=== PATIENT | female | born 1975 | race Caucasian/White ===

== ENCOUNTER → 2016-06-08 | Outpatient (CLI) | payer BC ==
--- NOTE | 2016-06-09 17:04 | WOMENS IMAGING REPORT ---
EXAM DESCRIPTION: 3D SCREENING MAMMO BILAT COMPLETED DATE/TIME: 06/08/2016 9:10 am REASON FOR STUDY: Z12.31 ROUTINE SCREENING MAMMO Z12.31 ENCNTR SCREEN MAMMOGRAM FOR MALIGNANT NEOPL ASM OF PHILIPP COMPARISON: 05/25/2015 TECHNIQUE: Standard craniocaudal and mediolateral oblique views of each breast recorded using digita l acquisition and breast tomosynthesis. LIMITATIONS: None. FINDINGS: No masses, calcifications or architectural distortion. No areas of suspicion. Read with the assistance of CAD. .[facility] - R2 Cenova Version 1.3 .[facility] - R2 Cenova Version 1.3 .[facility] - R2 Cenova Version 2.4 .[facility] [place] Cenova Version 2.4 .[facility] - R2 Economic Development Coordinator Version 9.2 BREAST DENSITY: c. The breasts are heterogeneously dense, which may obscure small masses. BIRAD: 1 NEGATIVE RECOMMENDATION: ROUTINE SCREENING COMMENT: PATIENT NOTIFIED BY LETTER. The [employer] recommends an annual screening mammogram for women aged 40 years or over. Each patient will receive a reminder prior to the anniversary date of her mammogram. The [employer] (ACR) has developed recommendations for screening MRI of the breast s in certain patient populations, to be used in conjunction with mammography. Breast MRI surveillanc e may be appropriate for women with more than 20% lifetime risk of developing breast cancer as deter mined by genetic testing, significant family history of the disease, or history of mantle radiation f or Hodgkins Disease. ACR Practice Guidelines 2008. DBT Technology DBT is a type of tomographic mammography. With conventional mammography, overlapping breast tissue ma y make lesions difficult to detect, even with good compression. DBT uses an x-ray tube that rotates a round the breast, taking images at different angles. These images are then combined to create thin sl ices of the breast that the radiologist can view as a 3D reconstruction. The [email or web address] unit can perform full-field digital mammograms (2D imaging); or DBT (3D imaging); or both, in a combination mode that quickly performs both the mammogram and the tomosynthesis scan while the breast is still compressed. PQRS 6045F: Fluoroscopic imaging is not utilized for breast tomosynthesis. TECHNICAL DOCUMENTATION: FINDING NUMBER: (1) ASSESSMENT: (1) JOB ID: [id number]- All Rights Reserved
== END ==
LOC: WI 08:42
PROVIDERS: ATTEND Obstetrics & Gynecology
DX: Z12.31 Encounter for screening mammogram for malignant neoplasm of breast (principal)
CPT/HCPCS: 77063; G0202; 77067

== ENCOUNTER → 2016-11-10 | Outpatient (CLI) | payer BC ==
[2016-11-10 16:27] LABS: ANION GAP 13 (5-19); BLOOD UREA NITROGEN 11 mg/dL (7-20); CALCIUM 9.5 mg/dL (8.4-10.2); CARBON DIOXIDE 24 mmol/L (22-30); CHLORIDE 99 mmol/L (98-107); CREATININE RESULT 1.16 mg/dL (0.52-1.25); GLUCOSE 81 mg/dL (75-110); SODIUM 135.6 mmol/L (137-145)
[2016-11-10 17:59] LABS: POTASSIUM 2.8 mmol/L (3.6-5.0)
== END ==
LOC: OD 15:36
PROVIDERS: ATTEND Internal Medicine Nephrology
DX: N20.9 Urinary calculus, unspecified (principal); E87.6 Hypokalemia
CPT/HCPCS: 36415; 80048

== ENCOUNTER → 2016-11-14 | Outpatient (CLI) | payer BC ==
[2016-11-14 11:31] LABS: ANION GAP 10 (5-19); BLOOD UREA NITROGEN 5 mg/dL (7-20); CALCIUM 9.3 mg/dL (8.4-10.2); CARBON DIOXIDE 22 mmol/L (22-30); CHLORIDE 103 mmol/L (98-107); CREATININE RESULT 0.98 mg/dL (0.52-1.25); GLUCOSE 88 mg/dL (75-110); POTASSIUM 3.3 mmol/L (3.6-5.0); SODIUM 134.8 mmol/L (137-145)
== END ==
LOC: OD 10:47
PROVIDERS: ATTEND Internal Medicine Nephrology
DX: E87.5 Hyperkalemia (principal)
CPT/HCPCS: 36415; 80048

== ENCOUNTER → 2016-11-23 | Outpatient (CLI) | payer BC ==
[2016-11-23 11:11] LABS: BLOOD UREA NITROGEN 10 mg/dL (7-20); CALCIUM 9.3 mg/dL (8.4-10.2); CARBON DIOXIDE 22 mmol/L (22-30); CHLORIDE 101 mmol/L (98-107); CREATININE RESULT 1.09 mg/dL (0.52-1.25); GLUCOSE 72 mg/dL (75-110); POTASSIUM 3.1 mmol/L (3.6-5.0); SODIUM 135.8 mmol/L (137-145)
[2016-11-23 11:12] LABS: ANION GAP 13 (5-19)
== END ==
LOC: OD 10:15
PROVIDERS: ATTEND Internal Medicine Nephrology
DX: E87.6 Hypokalemia (principal)
CPT/HCPCS: 36415; 80048

== ENCOUNTER → 2016-11-30 | Outpatient (CLI) | payer BC ==
[2016-11-30 14:32] LABS: ANION GAP 11 (5-19); BLOOD UREA NITROGEN 8 mg/dL (7-20); CALCIUM 9.1 mg/dL (8.4-10.2); CARBON DIOXIDE 21 mmol/L (22-30); CHLORIDE 103 mmol/L (98-107); CREATININE RESULT 0.91 mg/dL (0.52-1.25); GLUCOSE 82 mg/dL (75-110); POTASSIUM 3.1 mmol/L (3.6-5.0); SODIUM 135.3 mmol/L (137-145)
== END ==
LOC: OD 12:56
PROVIDERS: ATTEND Internal Medicine Nephrology
DX: E87.6 Hypokalemia (principal)
CPT/HCPCS: 36415; 80048

== ENCOUNTER → 2016-12-21 | Outpatient (CLI) | payer BC ==
[2016-12-21 14:06] LABS: ANION GAP 9 (5-19); BLOOD UREA NITROGEN 7 mg/dL (7-20); CALCIUM 9.3 mg/dL (8.4-10.2); CARBON DIOXIDE 23 mmol/L (22-30); CHLORIDE 108 mmol/L (98-107); CREATININE RESULT 0.89 mg/dL (0.52-1.25); GLUCOSE 80 mg/dL (75-110); POTASSIUM 3.8 mmol/L (3.6-5.0); SODIUM 139.9 mmol/L (137-145)
== END ==
LOC: OD 12:51
PROVIDERS: ATTEND Internal Medicine Nephrology
DX: E87.5 Hyperkalemia (principal)
CPT/HCPCS: 36415; 80048

== ENCOUNTER → 2016-12-27 | Outpatient (CLI) | payer BC ==
[2016-12-27 13:27] LABS: ANION GAP 11 (5-19); BLOOD UREA NITROGEN 10 mg/dL (7-20); CARBON DIOXIDE 21 mmol/L (22-30); CHLORIDE 105 mmol/L (98-107); CREATININE RESULT 0.88 mg/dL (0.52-1.25); GLUCOSE 95 mg/dL (75-110); POTASSIUM 3.4 mmol/L (3.6-5.0); SODIUM 136.8 mmol/L (137-145)
== END ==
LOC: OD 12:24
PROVIDERS: ATTEND Internal Medicine Nephrology
DX: E87.6 Hypokalemia (principal)
CPT/HCPCS: 36415; 80048

== ENCOUNTER → 2017-01-04 | Outpatient (CLI) | payer BC ==
[2017-01-04 11:48] LABS: ANION GAP 9 (5-19); BLOOD UREA NITROGEN 7 mg/dL (7-20); CALCIUM 9.3 mg/dL (8.4-10.2); CARBON DIOXIDE 21 mmol/L (22-30); CHLORIDE 106 mmol/L (98-107); CREATININE RESULT 0.77 mg/dL (0.52-1.25); GLUCOSE 82 mg/dL (75-110); POTASSIUM 4.1 mmol/L (3.6-5.0); SODIUM 136.4 mmol/L (137-145)
== END ==
LOC: OD 10:59
PROVIDERS: ATTEND Internal Medicine Nephrology
DX: E87.6 Hypokalemia (principal)
CPT/HCPCS: 36415; 80048

== ENCOUNTER → 2017-04-17 | Outpatient (CLI) | payer BC ==
[2017-04-17 10:59] LABS: ANION GAP 13 (5-19); BLOOD UREA NITROGEN 9 mg/dL (7-20); CALCIUM 9.9 mg/dL (8.4-10.2); CARBON DIOXIDE 21 mmol/L (22-30); CHLORIDE 103 mmol/L (98-107); CREATININE RESULT 1.09 mg/dL (0.52-1.25); GLUCOSE 80 mg/dL (75-110); POTASSIUM 3.5 mmol/L (3.6-5.0); SODIUM 137.4 mmol/L (137-145)
== END ==
LOC: OD 09:04
PROVIDERS: ATTEND Internal Medicine Nephrology
DX: E87.6 Hypokalemia (principal)
CPT/HCPCS: 36415; 80048

== ENCOUNTER → 2017-08-16 | Outpatient (CLI) | payer BC ==
[2017-08-16 10:24] LABS: ANION GAP 14 (5-19); BLOOD UREA NITROGEN 13 mg/dL (7-20); CALCIUM 9.9 mg/dL (8.4-10.2); CARBON DIOXIDE 23 mmol/L (22-30); CHLORIDE 97 mmol/L (98-107); GLUCOSE 77 mg/dL (75-110); SODIUM 133.7 mmol/L (137-145)
[2017-08-16 10:29] LABS: POTASSIUM 2.4 mmol/L (3.6-5.0)
== END ==
LOC: OD 08:50
PROVIDERS: ATTEND Internal Medicine Nephrology
DX: E87.6 Hypokalemia (principal)
CPT/HCPCS: 36415; 80048

== ENCOUNTER → 2017-08-21 | Outpatient (CLI) | payer BC ==
[2017-08-21 10:16] LABS: ANION GAP 8 (5-19); BLOOD UREA NITROGEN 6 mg/dL (7-20); CALCIUM 9.4 mg/dL (8.4-10.2); CARBON DIOXIDE 25 mmol/L (22-30); CHLORIDE 100 mmol/L (98-107); GLUCOSE 77 mg/dL (75-110); SODIUM 132.8 mmol/L (137-145)
[2017-08-21 10:32] LABS: POTASSIUM 2.9 mmol/L (3.6-5.0)
== END ==
LOC: OD 08:55
PROVIDERS: ATTEND Internal Medicine Nephrology
DX: E87.6 Hypokalemia (principal)
CPT/HCPCS: 36415; 80048

== ENCOUNTER → 2017-09-01 | Outpatient (CLI) | payer BC ==
[2017-09-01 13:19] LABS: ANION GAP 9 (5-19); BLOOD UREA NITROGEN 8 mg/dL (7-20); CALCIUM 9.3 mg/dL (8.4-10.2); CARBON DIOXIDE 24 mmol/L (22-30); CHLORIDE 102 mmol/L (98-107); GLUCOSE 103 mg/dL (75-110); SODIUM 135.2 mmol/L (137-145)
== END ==
LOC: OD 12:10
PROVIDERS: ATTEND Internal Medicine Nephrology
DX: E87.6 Hypokalemia (principal)
CPT/HCPCS: 36415; 80048

== ENCOUNTER → 2017-10-11 | Outpatient (CLI) | payer BC ==
[2017-10-11 12:55] LABS: ANION GAP 14 (5-19); BLOOD UREA NITROGEN 12 mg/dL (7-20); CALCIUM 9.2 mg/dL (8.4-10.2); CARBON DIOXIDE 24 mmol/L (22-30); CHLORIDE 104 mmol/L (98-107); GLUCOSE 83 mg/dL (75-110); POTASSIUM 4.1 mmol/L (3.6-5.0); SODIUM 141.7 mmol/L (137-145)
== END ==
LOC: OD 11:01
PROVIDERS: ATTEND Internal Medicine Nephrology
DX: E87.6 Hypokalemia (principal)
CPT/HCPCS: 36415; 80048

== ENCOUNTER → 2017-11-24 | Outpatient (CLI) | payer BC ==
--- NOTE | 2017-11-24 14:18 | RADIOLOGY REPORT (SQ) ---
EXAM DESCRIPTION: U/S RETROPERITON LTD COMPLETED DATE/TIME: 11/24/2017 1:22 pm REASON FOR STUDY: CALCULUS OF KIDNEY,HYPOKALEMIA E87.6 HYPOKALEMIA N20.0 CALCULUS OF KIDNEY COMPARISON: None. TECHNIQUE: Dynamic and static grayscale images acquired of the kidneys and bladder and recorded on P ACS. Additional selected color Doppler and spectral images recorded. LIMITATIONS: None. FINDINGS: RIGHT KIDNEY: The right kidney measures 9.1 x 4.2 x 3.6 cm. Normal size. Normal echoge nicity. No solid or suspicious masses. No hydronephrosis. No calcifications. LEFT KIDNEY: The left kidney measures 9.9 x 5.8 cm x 5.3 cm, normal size. Normal echogenicity. Se veral echogenic foci are identified in the kidney with 1 of the largest in the lower pole which measu res 12 mm. These findings suggest nonobstructing renal calculated. No solid or suspicious masses. No hydronephrosis. No calcifications. BLADDER: Suboptimally visualized. OTHER FINDINGS: No other significant finding. IMPRESSION: 1 No evidence of hydronephrosis. 2 Left renal calculi. TECHNICAL DOCUMENTATION: JOB ID: [id number] [employer]- All Rights Reserved Reading location - IP/workstation name: [email or web address]
== END ==
LOC: RAD 12:56
PROVIDERS: ATTEND Urology
DX: N20.0 Calculus of kidney (principal); E87.6 Hypokalemia
CPT/HCPCS: 76775

== ENCOUNTER → 2017-12-07 | Outpatient (CLI) | payer BC ==
--- NOTE | 2017-12-07 12:40 | RADIOLOGY REPORT (SQ) ---
EXAM DESCRIPTION: KUB COMPLETED DATE/TIME: 12/07/2017 12:18 pm REASON FOR STUDY: NEPHROLITHIASIS N20.0 CALCULUS OF KIDNEY COMPARISON: December 2015 NUMBER OF VIEWS: One view. TECHNIQUE: Supine radiographic image of the abdomen acquired. LIMITATIONS: Study is limited due to overlying gas and fecal material partially obscuring the renal contours. FINDINGS: BOWEL GAS PATTERN: Normal bowel gas pattern. No dilated loops. CALCIFICATIONS: Radiopaque density is identified overlying the left renal contour consistent with a r enal calculus which was present on the previous study. The previously described pelvic calcification s consistent with phleboliths are again identified. SOFT TISSUES: No gross mass or suggestion of organomegaly. HARDWARE: None in the abdomen. BONES: No acute fracture. No worrisome bone lesions. OTHER: No other significant finding. IMPRESSION: The previously described left renal calculus is again identified. Calcific densities ar e again identified in the pelvis consistent with phleboliths. Other findings as noted above TECHNICAL DOCUMENTATION: JOB ID: [id number] [employer]- All Rights Reserved Reading location - IP/workstation name: [email or web address]
== END ==
LOC: OD 11:58
PROVIDERS: ATTEND Urology
DX: N20.0 Calculus of kidney (principal)
CPT/HCPCS: 74018

== ENCOUNTER → 2017-12-22 | Outpatient (CLI) | payer BC | LOC: OD 15:04 | PROVIDERS: ATTEND Nurse Practitioner Acute Care | DX: R30.0 Dysuria (principal) | CPT/HCPCS: 87086 ==

== ENCOUNTER → 2018-03-01 | Outpatient (CLI) | payer BC ==
[2018-03-01 16:51] LABS: ANION GAP 8 (5-19); BLOOD UREA NITROGEN 13 mg/dL (7-20); CARBON DIOXIDE 23 mmol/L (22-30); CHLORIDE 105 mmol/L (98-107); GLUCOSE 85 mg/dL (75-110); SODIUM 136.2 mmol/L (137-145)
[2018-03-01 18:19] LABS: POTASSIUM 2.9 mmol/L (3.6-5.0)
== END ==
LOC: OD 14:49
PROVIDERS: ATTEND Internal Medicine Nephrology
DX: E87.6 Hypokalemia (principal)
CPT/HCPCS: 36415; 80048

== ENCOUNTER → 2018-03-06 | Outpatient (CLI) | payer BC ==
[2018-03-06 14:47] LABS: ANION GAP 8 (5-19); BLOOD UREA NITROGEN 7 mg/dL (7-20); CARBON DIOXIDE 25 mmol/L (22-30); CHLORIDE 107 mmol/L (98-107); GLUCOSE 84 mg/dL (75-110); POTASSIUM 3.7 mmol/L (3.6-5.0); SODIUM 139.9 mmol/L (137-145)
== END ==
LOC: OD 13:15
PROVIDERS: ATTEND Internal Medicine Nephrology
DX: E87.6 Hypokalemia (principal)
CPT/HCPCS: 36415; 80048

== ENCOUNTER → 2018-04-11 | Outpatient (CLI) | payer BC ==
[2018-04-11 14:31] LABS: ANION GAP 8 (5-19); BLOOD UREA NITROGEN 14 mg/dL (7-20); CARBON DIOXIDE 25 mmol/L (22-30); CHLORIDE 102 mmol/L (98-107); GLUCOSE 62 mg/dL (75-110); POTASSIUM 3.1 mmol/L (3.6-5.0); SODIUM 135.1 mmol/L (137-145)
== END ==
LOC: OD 13:00
PROVIDERS: ATTEND Internal Medicine Nephrology
DX: E87.6 Hypokalemia (principal)
CPT/HCPCS: 36415; 80048

== ENCOUNTER → 2018-04-16 | Outpatient (CLI) | payer BC ==
[2018-04-16 08:46] LABS: ANION GAP 9 (5-19); BLOOD UREA NITROGEN 9 mg/dL (7-20); CALCIUM 9.4 mg/dL (8.4-10.2); CARBON DIOXIDE 25 mmol/L (22-30); CHLORIDE 104 mmol/L (98-107); GLUCOSE 84 mg/dL (75-110); POTASSIUM 3.1 mmol/L (3.6-5.0); SODIUM 138.3 mmol/L (137-145)
== END ==
LOC: OD 07:19
PROVIDERS: ATTEND Internal Medicine Nephrology
DX: E87.6 Hypokalemia (principal)
CPT/HCPCS: 36415; 80048

== ENCOUNTER → 2018-04-26 | Outpatient (CLI) | payer BC ==
[2018-04-26 08:55] LABS: ANION GAP 8 (5-19); BLOOD UREA NITROGEN 10 mg/dL (7-20); CALCIUM 8.5 mg/dL (8.4-10.2); CARBON DIOXIDE 24 mmol/L (22-30); CHLORIDE 107 mmol/L (98-107); GLUCOSE 71 mg/dL (75-110); POTASSIUM 3.2 mmol/L (3.6-5.0); SODIUM 139.1 mmol/L (137-145)
== END ==
LOC: OD 07:13
PROVIDERS: ATTEND Internal Medicine Nephrology
DX: E87.6 Hypokalemia (principal)
CPT/HCPCS: 36415; 80048

== ENCOUNTER → 2018-05-09 | Outpatient (CLI) | payer BC ==
[2018-05-09 09:34] LABS: ANION GAP 12 (5-19); BLOOD UREA NITROGEN 12 mg/dL (7-20); CALCIUM 9.5 mg/dL (8.4-10.2); CARBON DIOXIDE 25 mmol/L (22-30); CHLORIDE 101 mmol/L (98-107); GLUCOSE 80 mg/dL (75-110); SODIUM 138.1 mmol/L (137-145)
[2018-05-09 09:40] LABS: POTASSIUM 3.1 mmol/L (3.6-5.0)
== END ==
LOC: OD 07:17
PROVIDERS: ATTEND Internal Medicine Nephrology
DX: E87.6 Hypokalemia (principal)
CPT/HCPCS: 36415; 80048

== ENCOUNTER → 2018-05-18 | Outpatient (CLI) | payer BC ==
[2018-05-18 14:49] LABS: ANION GAP 8 (5-19); BLOOD UREA NITROGEN 10 mg/dL (7-20); CALCIUM 9.2 mg/dL (8.4-10.2); CARBON DIOXIDE 23 mmol/L (22-30); CHLORIDE 106 mmol/L (98-107); GLUCOSE 88 mg/dL (75-110); POTASSIUM 3.1 mmol/L (3.6-5.0); SODIUM 136.6 mmol/L (137-145)
== END ==
LOC: OD 13:04
PROVIDERS: ATTEND Internal Medicine Nephrology
DX: E87.6 Hypokalemia (principal)
CPT/HCPCS: 36415; 80048

== ENCOUNTER 2019-04-16 19:35 | Observation (INO) | payer BC ==
--- NOTE | 2019-04-16 20:04 | ER Document Report ---
ED Medical Screen (RME) - General Chief Complaint: Flu Symptoms Stated Complaint: POTASSIUM LOW Time Seen by Provider: 04/16/19 20:01 Primary Care Provider: VIRGILIO MICHAEL DO [Primary Care Provider] - Follow up as needed Mode of Arrival: Ambulatory Information source: Patient Notes: Patient presents emergency department with reports that her potassium was critically low 2.9. Reports she had her labs drawn by her doctor Dr. Michael in [place] this morning. She reports she is was not feeling very good. She reports she has a kidney stones and she is on a lot of potassium supplements. She reports her doctor told her that her potassium is currently low and she needed to get to the emergency department right away. She reports her chest feels funny also. I have greeted and performed a rapid initial assessment of this patient. A comprehensive ED assessment and evaluation of the patient, analysis of test results and completion of the medical decision making process will be conducted by additional ED providers. Dictation of this chart was performed using voice recognition software; therefore, there may be some unintended grammatical errors. TRAVEL OUTSIDE OF THE [place] IN LAST 30 DAYS: No - Related Data Allergies/Adverse Reactions: cephalexin monohydrate [From Keflex] Allergy (Verified 09/11/12 10:24) erythromycin base [Erythromycin Base] Allergy (Verified 09/11/12 10:24) morphine [Morphine] Allergy (Verified 09/11/12 10:24) Past Medical History Neurological Medical History: Reports: Hx Migraine Renal/ Medical History: Reports: Hx Kidney Stones Past Surgical History: Reports: Hx Kidney (Renal Surgery) - [id number] - Immunizations Hx Diphtheria, Pertussis, Tetanus Vaccination: Yes Physical Exam - Vital signs Vitals: Temp Pulse Resp BP Pulse Ox 98.1 F 105 H 18 132/87 H 100 04/16/19 19:44 04/16/19 19:44 04/16/19 19:44 04/16/19 19:44 04/16/19 19:44 Course - Vital Signs Vital signs: Temp Pulse Resp BP Pulse Ox 98.1 F 105 H 18 132/87 H 100 04/16/19 19:44 04/16/19 19:44 04/16/19 19:44 04/16/19 19:44 04/16/19 19:44 Doctor's Discharge - Discharge Referrals: VIRGILIO MICHAEL DO [Primary Care Provider] - Follow up as needed
[2019-04-16 20:43] LABS: ABSOLUTE BASOPHILS # (AUTO) 0.1 10^3/uL (0.0-0.2); ABSOLUTE EOSINOPHILS # (AUTO) 0.1 10^3/uL (0.0-0.6); ABSOLUTE LYMPHOCYTES (AUTO) 2.2 10^3/uL (0.5-4.7); ABSOLUTE MONOCYTES (AUTO) 0.5 10^3/uL (0.1-1.4); ABSOLUTE NEUT (AUTO) 8.7 10^3/uL (1.7-8.2); BASOPHILS % (AUTO) 0.5 % (0-2); EOSINOPHILS % (AUTO) 1.2 % (0-6); HEMATOCRIT 47.9 % (36.0-47.0); HEMOGLOBIN 16.5 g/dL (12.0-15.5); LYMPHOCYTES % (AUTO) 18.7 % (13-45); MEAN CORPUSCULAR HEMOGLOBIN 32.1 pg (27.0-33.4); MEAN CORPUSCULAR HGB CONC 34.5 g/dL (32.0-36.0); MEAN CORPUSCULAR VOLUME 93 fl (80-97); MONOCYTES % (AUTO) 4.6 % (3-13); PLATELET COUNT 273 10^3/uL (150-450); RED BLOOD COUNT 5.15 10^6/uL (3.72-5.28); RED CELL DISTRIBUTION WIDTH 13.4 % (11.5-14.0); TOTAL CELLS COUNTED % (AUTO) 100 %; WHITE BLOOD COUNT 11.6 10^3/uL (4.0-10.5)
[2019-04-16 21:03] LABS: ALBUMIN 4.3 g/dL (3.5-5.0); ALKALINE PHOSPHATASE 44 U/L (38-126); ANION GAP 15 (5-19); ASPARTATE AMINO TRANSFERASE 27 U/L (14-36); BILIRUBIN,DIRECT 0.1 mg/dL (0.0-0.4); BILIRUBIN,TOTAL 0.4 mg/dL (0.2-1.3); BLOOD UREA NITROGEN 15 mg/dL (7-20); CALCIUM 9.3 mg/dL (8.4-10.2); CARBON DIOXIDE 19 mmol/L (22-30); CHLORIDE 102 mmol/L (98-107); GLUCOSE 125 mg/dL (75-110); TOTAL PROTEIN 7.5 g/dL (6.3-8.2)
[2019-04-16 21:15] LABS: POTASSIUM 2.4 mmol/L (3.6-5.0)
[2019-04-16] MEDS ORDERED: POTASSIUM CHLORIDE 10 MEQ CAPSULE.ER PO ONE (21:20)
[2019-04-16] MEDS ORDERED: POTASSI CL 20 MEQ/50 ML RIDER 20 MEQ/50 ML RTUPB IV ONE (21:20)
[2019-04-16] MEDS ORDERED: NORMAL SALINE 1000 ML 1,000 ML IV ONE (21:21)
[2019-04-16] MEDS ORDERED: ONDANSETRON HCL INJ/PF 4 MG/2 ML SDV IV ONE (21:21)
--- NOTE | 2019-04-16 21:27 | ER Document Report ---
ED General - General Chief Complaint: Abnormal Lab Results Stated Complaint: POTASSIUM LOW Time Seen by Provider: 04/16/19 20:01 Primary Care Provider: VIRGILIO MICHAEL DO [ASSOCIATE] - Follow up as needed Mode of Arrival: Ambulatory TRAVEL OUTSIDE OF THE [place] IN LAST 30 DAYS: No - HPI Notes: Ms. Burciaga is a 43-year-old female sent to the emergency department by her echo technician because of concern about possible hypokalemia. She was seen in the echo technician office in [place] earlier today for routine follow-up and complained of loss of appetite in the last 24 hours and some muscular weakness and some vague palpitations. They sent her to a freestanding lab where potassium was drawn and she was later told her potassium was 2.5. She was instructed to come to the emergency department did not bring any documentation of the blood work. Patient denies vomiting or diarrhea. Denies chest pain or shortness of breath. Patient has a history of recurrent kidney stones and has been told that she has "mild kidney impairment". She is presently taking 10 mEq of potassium at home twice daily and says she has been compliant with this. She denies taking any other medications at this time. She has multiple drug allergies as documented in the chart by nursing staff. - Related Data Allergies/Adverse Reactions: cephalexin monohydrate [From Keflex] Allergy (Verified 09/11/12 10:24) erythromycin base [Erythromycin Base] Allergy (Verified 09/11/12 10:24) morphine [Morphine] Allergy (Verified 09/11/12 10:24) Home Medications: potassium 10meq. allopurinol. htz. kidney medication-unable to recall name Past Medical History - General Information source: Patient - Social History Smoking Status: Never Smoker Family History: Reviewed & Not Pertinent Patient has suicidal ideation: No Patient has homicidal ideation: No Neurological Medical History: Reports: Hx Migraine Renal/ Medical History: Reports: Hx Kidney Stones Past Surgical History: Reports: Hx Kidney (Renal Surgery) - [id number] - Immunizations Hx Diphtheria, Pertussis, Tetanus Vaccination: Yes Review of Systems - Review of Systems Notes: Constitutional: Negative for fever. Mild generalized weakness and malaise. HENT: Negative for sore throat. Eyes: Negative for visual changes. Cardiovascular: Palpitations as per HPI. Negative for chest pain. Respiratory: Negative for shortness of breath. Gastrointestinal: Negative for abdominal pain, vomiting or diarrhea. Genitourinary: Negative for dysuria. Musculoskeletal: Negative for back pain. Skin: Negative for rash. Neurological: Negative for headaches, weakness or numbness. 10 point ROS negative except as marked above and in HPI. Physical Exam - Vital signs Vitals: Temp Pulse Resp BP Pulse Ox 98.1 F 105 H 18 132/87 H 100 04/16/19 19:44 04/16/19 19:44 04/16/19 19:44 04/16/19 19:44 04/16/19 19:44 - Notes Notes: GENERAL: Well-developed well-nourished appearing in no acute distress. SKIN: Good turgor no rashes. HEAD: Normocephalic atraumatic. EYES: PERRLA. Conjunctivae and sclerae clear. EARS: CANALS AND TMS CLEAR. NOSE: CLEAR. MOUTH: Moist mucosa. Good dentition. No stridor or edema. No drooling. NECK: Supple. No masses or thyromegaly. No adenopathy. Carotids 2+ without bruits. No JVD. BACK: Symmetrical without tenderness. CHEST: Respirations unlabored. Breath sounds clear and symmetrical. HEART: Regular rhythm. No murmur gallop or rub. ABDOMEN: Soft nontender without masses, organomegaly or rebound. Bowel sounds normally active. No bruits. GENITALIA: Deferred. EXTREMITIES: No edema. No calf tenderness. Cap refill less than 1.5 seconds. Dorsalis pedis and posterior tibial pulses 3+ and symmetrical. NEUROLOGICAL: GCS 15. Alert and oriented x3. Normal gait. Fluent speech. Cranial nerves II through XII intact. Sensorimotor and cerebellar normal. Normal tone. Psychiatric: Flat affect. Course - Re-evaluation Re-evalutation: 04/16/19 21:26 Patient has a significantly low potassium of 2.4. She is going to receive IV normal saline and K rider IV. We will check a magnesium level. Also the patient is being given some IV Zofran and oral potassium. 04/17/19 01:04 Despite receiving supplemental potassium orally and intravenously K is still very low at 2.5. I have a suspicion that this lady is probably abusing diuretics. Case has been discussed with Dr. Lion Lance the on-call hospitalist who will be admitting to telemetry. - Vital Signs Vital signs: Temp Pulse Resp BP Pulse Ox 98.1 F 105 H 14 123/82 100 04/16/19 19:44 04/16/19 19:44 04/17/19 00:01 04/17/19 00:00 04/17/19 00:01 - Laboratory Result Diagrams: 04/16/19 20:30 04/17/19 00:04 Laboratory results interpreted by me: 04/16/19 04/16/19 04/16/19 20:30 20:30 20:30 WBC 11.6 H Hgb 16.5 H Hct 47.9 H Absolute Neuts (auto) 8.7 H VBG pCO2 VBG HCO3 Sodium 136.4 L Potassium 2.4 L* Chloride Carbon Dioxide 19 L Est GFR (MDRD) Non-Af 49 L Glucose 125 H Calcium Magnesium 2.6 H Urine Protein Urine Ketones Ur Leukocyte Esterase Urine Ascorbic Acid 04/16/19 04/17/19 04/17/19 21:45 00:04 00:49 WBC Hgb Hct Absolute Neuts (auto) VBG pCO2 32.7 L VBG HCO3 18.4 L Sodium 135.3 L Potassium 2.5 L* Chloride 108 H Carbon Dioxide 17 L Est GFR (MDRD) Non-Af Glucose Calcium 8.3 L Magnesium Urine Protein 30 H Urine Ketones TRACE H Ur Leukocyte Esterase SMALL H Urine Ascorbic Acid 40 H - EKG Interpretation by Me EKG shows normal: Sinus rhythm Rate: Normal Rhythm: NSR - Nonspecific ST-T wave changes. Discharge - Discharge Clinical Impression: Hypokalemia, Palpitations Condition: Fair Disposition: ADMITTED OBSERVATION Admitting Provider: Natalio (Hospitalist) Unit Admitted: Telemetry Referrals: VIRGILIO MICHAEL DO [ASSOCIATE] - Follow up as needed
[2019-04-16 22:09] LABS: APPEARANCE,URINE SLIGHTLY-CLOUDY; BILIRUBIN,URINE NEGATIVE (NEGATIVE); COLOR,URINE YELLOW; GLUCOSE, URINE NEGATIVE (NEGATIVE); KETONES,URINE TRACE mg/dL (NEGATIVE); LEUKOCYTE ESTERASE,URINE SMALL (NEGATIVE); NITRITE,URINE NEGATIVE (NEGATIVE); PROTEIN,URINE 30 mg/dL (NEGATIVE); URINE SPECIFIC GRAVITY 1.015; UROBILINOGEN,URINE NEGATIVE mg/dL (<2.0)
--- NOTE | 2019-04-16 22:40 | EKG REPORT ---
SEVERITY:- ABNORMAL ECG - SINUS RHYTHM LEFT ATRIAL ABNORMALITY CONSIDER ANTEROSEPTAL INFARCT NONSPECIFIC T ABNORMALITIES, LATERAL LEADS : Confirmed by: Kody Marion MD 16-Apr-2019 22:40:17
[2019-04-17 00:27] LABS: ANION GAP 10 (5-19); BLOOD UREA NITROGEN 13 mg/dL (7-20); CALCIUM 8.3 mg/dL (8.4-10.2); CARBON DIOXIDE 17 mmol/L (22-30); CHLORIDE 108 mmol/L (98-107); GLUCOSE 104 mg/dL (75-110)
[2019-04-17 00:32] LABS: POTASSIUM 2.5 mmol/L (3.6-5.0)
[2019-04-17] MEDS ORDERED: POTASSIUM CHLORIDE 20 MEQ PACKET PO ONE (00:42)
[2019-04-17] MEDS ORDERED: POTASSI CL 20 MEQ/50 ML RIDER 20 MEQ/50 ML RTUPB IV SCH ×2 (00:43→16:00)
[2019-04-17 00:59] LABS: VENOUS BLOOD BASE EXCESS -5.9 mmol/L; VENOUS BLOOD HCO3 18.4 mmol/L (20-32); VENOUS BLOOD PCO2 32.7 mmHg (35-63); VENOUS BLOOD PH 7.37 (7.30-7.42)
[2019-04-17] MEDS ORDERED: MAG HYDROX/AL HYDROX/SIMETH SUSP 30 ML UDCUP PO PRN (01:03)
[2019-04-17] MEDS ORDERED: POTASSI CL 20 MEQ/D5-1/2NS 1L 1,000 ML IV ONE (01:30)
[2019-04-17] MEDS ORDERED: POTASSIUM CHLORIDE 10 MEQ CAPSULE.ER PO ONE ×2 (01:30→03:34)
[2019-04-17 01:42] LABS: URINE AMPHETAMINES SCREEN NEGATIVE; URINE BARBITURATES SCREEN NEGATIVE; URINE BENZODIAZEPINES SCREEN NEGATIVE; URINE COCAINE SCREEN NEGATIVE; URINE MARIJUANA (THC) SCREEN NEGATIVE; URINE METHADONE SCREEN NEGATIVE; URINE PHENCYCLIDINE SCREEN NEGATIVE
[2019-04-17] MEDS: POTASSI CL 20 MEQ/50 ML RIDER 20 MEQ/50 ML RTUPB IV SCH ×2 (03:26→03:28)
[2019-04-17] MEDS: HEPARIN SOD (PORCINE) 5,000 UNIT/ML 1 ML VIAL SUBCUT SCH ×2 (05:32→16:56)
[2019-04-17 06:16] VITALS: BP 114/79
--- NOTE | 2019-04-17 06:16 | PDOC H&P ---
History of Present Illness Admission Date/PCP: 04/17/19 01:30 RINA CRISTINA MD Patient complains of: Palpitations History of Present Illness: ELICIA HEIN is a 43 year old female with a past medical history of hypokalemia of unknown cause and recurrent palpitations. Patient is referred by nephrology after seen in the office with complaints of generalized weakness and palpitations. Patient admits intermittent problems spending years of unknown cause despite multiple investigations. In the emergency room she is found to have a potassium of only 2.5 and a bicarb of 17, receives p.o. and IV potassium repletion and referred to the hospitalist for admission. Patient admits to being weight conscious but denies self-induced vomiting, laxative or diuretic use. She admits to frequently feeling hungry but resists eating she also admits to regular use of colonic cleansing preparations, last use yesterday. Past Medical History Cardiac Medical History: Reports: None Neurological Medical History: Reports: Migraine Past Surgical History Past Surgical History: Reports: None Social History Information Source: Patient Smoking Status: Never Smoker Frequency of Alcohol Use: None Drugs: None - Advance Directive Resuscitation Status: Full Code Family History Family History: Hypertension. denies: Malignancy Parental Family History Reviewed: Yes Children Family History Reviewed: Yes Sibling(s) Family History Reviewed.: Yes Medication/Allergy Home Medications: Allopurinol 1 tab PO DAILY 09/11/12 Capsaicin/Camphor/Menthol [Ortho-Nesic Gel] 180 ml TP 09/11/12 Potassium Citrate [Urocit-K] 10 meq PO BID 09/11/12 Allergies/Adverse Reactions: cephalexin monohydrate [From Keflex] Allergy (Verified 09/11/12 10:24) erythromycin base [Erythromycin Base] Allergy (Verified 09/11/12 10:24) morphine [Morphine] Allergy (Verified 09/11/12 10:24) Review of Systems Constitutional: PRESENT: as per HPI, fatigue, weakness, weight gain, weight loss. ABSENT: fever(s), headache(s), night sweats Eyes: ABSENT: visual disturbances Ears: ABSENT: hearing changes Cardiovascular: PRESENT: palpitations. ABSENT: chest pain, dyspnea on exertion, edema, orthropnea Respiratory: ABSENT: cough, hemoptysis Gastrointestinal: ABSENT: abdominal pain, constipation, diarrhea, hematemesis, hematochezia, nausea, vomiting Genitourinary: ABSENT: dysuria, hematuria Musculoskeletal: ABSENT: joint swelling Integumentary: ABSENT: rash, wounds Neurological: ABSENT: abnormal gait, abnormal speech, confusion, dizziness, focal weakness, syncope Psychiatric: ABSENT: anxiety, depression, homidical ideation, suicidal ideation Endocrine: ABSENT: cold intolerance, heat intolerance, polydipsia, polyuria Hematologic/Lymphatic: ABSENT: easy bleeding, easy bruising Physical Exam Vital Signs: Temp Pulse Resp BP Pulse Ox 98.4 F 105 H 18 111/78 100 04/17/19 04:10 04/16/19 19:44 04/17/19 05:01 04/17/19 05:00 04/17/19 05:01 Intake & Output 04/15/19 04/16/19 04/17/19 11:59 11:59 11:59 Intake Total 1100 Balance 1100 Weight 47.854 kg General appearance: PRESENT: no acute distress, thin, well-developed, well- nourished Head exam: PRESENT: atraumatic, normocephalic Eye exam: PRESENT: conjunctiva pink, EOMI, PERRLA. ABSENT: scleral icterus Ear exam: PRESENT: normal external ear exam Mouth exam: PRESENT: moist, tongue midline Neck exam: ABSENT: carotid bruit, JVD, lymphadenopathy, thyromegaly Respiratory exam: PRESENT: clear to auscultation celine. ABSENT: rales, rhonchi, wheezes Cardiovascular exam: PRESENT: RRR. ABSENT: diastolic murmur, rubs, systolic murmur Pulses: PRESENT: normal dorsalis pedis pul Vascular exam: PRESENT: normal capillary refill GI/Abdominal exam: PRESENT: normal bowel sounds, soft. ABSENT: distended, guarding, mass, organolmegaly, rebound, tenderness Rectal exam: PRESENT: deferred Extremities exam: PRESENT: full ROM. ABSENT: calf tenderness, clubbing, pedal edema Neurological exam: PRESENT: alert, awake, oriented to person, oriented to place, oriented to time, oriented to situation, CN II-XII grossly intact. ABSENT: motor sensory deficit Psychiatric exam: PRESENT: appropriate affect, normal mood. ABSENT: homicidal ideation, suicidal ideation Skin exam: PRESENT: dry, intact, warm, other - Downy hair on the arms. ABSENT: cyanosis, rash Results Laboratory Results: 04/16/19 20:30 04/17/19 00:04 04/16/19 04/16/19 04/16/19 20:30 20:30 20:30 WBC 11.6 H RBC 5.15 Hgb 16.5 H Hct 47.9 H MCV 93 MCH 32.1 MCHC 34.5 RDW 13.4 Plt Count 273 Seg Neutrophils % 75.0 VBG pH VBG pCO2 VBG HCO3 VBG Base Excess Sodium 136.4 L Potassium 2.4 L* Chloride 102 Carbon Dioxide 19 L Anion Gap 15 BUN 15 Creatinine 1.19 Est GFR ( Amer) > 60 Glucose 125 H Calcium 9.3 Phosphorus Magnesium 2.6 H Total Bilirubin 0.4 AST 27 Alkaline Phosphatase 44 Total Protein 7.5 Albumin 4.3 Urine Color Urine Appearance Urine pH Ur Specific Longs Urine Protein Urine Glucose (UA) Urine Ketones Urine Blood Urine Nitrite Ur Leukocyte Esterase Urine WBC (Auto) Urine RBC (Auto) 04/16/19 04/17/19 04/17/19 21:45 00:04 00:04 WBC RBC Hgb Hct MCV MCH MCHC RDW Plt Count Seg Neutrophils % VBG pH VBG pCO2 VBG HCO3 VBG Base Excess Sodium 135.3 L Potassium 2.5 L* Chloride 108 H Carbon Dioxide 17 L Anion Gap 10 BUN 13 Creatinine 0.81 Est GFR ( Amer) > 60 Glucose 104 Calcium 8.3 L Phosphorus 2.6 Magnesium Total Bilirubin AST Alkaline Phosphatase Total Protein Albumin Urine Color YELLOW Urine Appearance SLIGHTLY-CLOUDY Urine pH 6.0 Ur Specific Longs 1.015 Urine Protein 30 H Urine Glucose (UA) NEGATIVE Urine Ketones TRACE H Urine Blood NEGATIVE Urine Nitrite NEGATIVE Ur Leukocyte Esterase SMALL H Urine WBC (Auto) 12 Urine RBC (Auto) 2 04/17/19 00:49 WBC RBC Hgb Hct MCV MCH MCHC RDW Plt Count Seg Neutrophils % VBG pH 7.37 VBG pCO2 32.7 L VBG HCO3 18.4 L VBG Base Excess -5.9 Sodium Potassium Chloride Carbon Dioxide Anion Gap BUN Creatinine Est GFR ( Amer) Glucose Calcium Phosphorus Magnesium Total Bilirubin AST Alkaline Phosphatase Total Protein Albumin Urine Color Urine Appearance Urine pH Ur Specific Longs Urine Protein Urine Glucose (UA) Urine Ketones Urine Blood Urine Nitrite Ur Leukocyte Esterase Urine WBC (Auto) Urine RBC (Auto) 04/16/19 20:30 Troponin I < 0.012 Assessment and Plan - Diagnosis (1) Hypokalemia Is this a current diagnosis for this admission?: Yes Plan: Secondary to calorie restriction and regular colonic cleansing preparations. Patient is educated, p.o. and IV repletion continue follow-up chemistry. Follow-up primary care provider and consideration of mental health if recurrence despite education for possible eating disorder (2) Metabolic acidosis Is this a current diagnosis for this admission?: Yes Plan: Secondary to caloric restriction. Follow-up chemistry after eating (3) Palpitations Is this a current diagnosis for this admission?: Yes Plan: Secondary to #1, continue telemetry monitoring. - Time Time Spent with patient: 25-34 minutes - Inpatient Certification Medical Necessity: Need Close Monitoring Due to Risk of Patient Decompensation
[2019-04-17] MEDS ORDERED: MORPHINE SULFATE 10 MG/ML INJ ONE (09:13)
--- NOTE | 2019-04-17 10:31 | PSYCHOLOGICAL NOTE ---
Psych Note - Psych Note Date seen by psych provider: 04/17/19 Time seen by psych provider: 10:05 Psych Note: Reason for Consult : possible anorexia ELICIA HEIN is a 43 year old female with a past medical history of hypokalemia of unknown cause and recurrent palpitations. Patient admits intermittent problems spending years of unknown cause despite multiple investigations. Patient admitted to evening physician to being weight conscious but denies self- induced vomiting, laxative or diuretic use. She admits to frequently feeling hungry but resists eating she also admits to regular use of colonic cleansing preparations, last use yesterday. Patient reports that she has a long history of low potassium and can always tell when he gets too low because she ends up getting nauseous. She reports that when her potassium is low she is not hungr which causes her not to eat. Patient states she is very health conscious and stays away from carbs however states that she does eat a lot of candy. She reports that when she notices that she is having difficulty with her potassium she tries to eat "high potassium foods." She continued to state that last night she made herself potato with ketchup (1 of her most favorite foods) and when she became nauseous she knew she had to come in to [facility] ED. She adamantly denies to clinician eating disorder or thoughts of wanting to harm herself. She reports that she also works out and is just health-conscious. Patient states that her 's side of the family and daughters are overweight so she tries to lead by example. Patient is alert and orientated to person, place, time and circumstance. Mood is euthymic with congruent affect as evidenced by smiling and laughing engaged with clinician. Patient denies suicidal homicidal ideation. Delusions are absent behaviors congruent with an intact reality based presentation i.e. organized and linear thought process. Eye contact is well-maintained. Conversational speech is within normal rate, tone and prosody. Intellectual abilities appear to be within the average range. Attention and concentration are good. Insight, judgment, impulse control are fair. Probable eating disorder No medication recommendations at this time Impression\\plan: Patient is cleared from acute psychiatric services. While patient has a probable eating disorder, patient adamantly denies and does not meet IVC criteria at this time. Patient identifies eating problems stemming from her low potassium. She confirms she is health conscious and both exercises and does not eat carbs. Patient declines any resources. Dr. Jaimes was consulted and the care management of this patient; attending physicians in agreement with recommendations and disposition.
[2019-04-17 14:20] LABS: ANION GAP 9 (5-19); BLOOD UREA NITROGEN 6 mg/dL (7-20); CALCIUM 8.5 mg/dL (8.4-10.2); CARBON DIOXIDE 20 mmol/L (22-30); CHLORIDE 110 mmol/L (98-107); GLUCOSE 90 mg/dL (75-110)
[2019-04-17 14:28] LABS: POTASSIUM 2.7 mmol/L (3.6-5.0)
--- NOTE | 2019-04-17 16:27 | Left Against Medical Advice ---
Against Medical Advice Admission Date/Time: 04/17/19 01:30 Primary Care Provider: RINA CRISTINA MD Date of Patient Emigration: 04/17/19 - Diagnosis: (1) Hypokalemia Is this a current diagnosis for this admission?: Yes (2) Metabolic acidosis Is this a current diagnosis for this admission?: Yes (3) Palpitations Is this a current diagnosis for this admission?: Yes (4) Eating disorder Is this a current diagnosis for this admission?: Yes - Summary: Summary: Please see Admission and Progress Notes as well. ELICIA HEIN is a 43 F, who LEFT AGAINST MEDICAL ADVICE. The Patient was admitted on 04/17/19 01:30. 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 She was provided IV potassium 40 mEqs, oral potassium 80 mEq, Normal saline x1 L, and D51/2NS with 20 mEqs of potassium x1 L for a total of 140 mEqs of potassium replacement. The patient was placed on a regular diet with strict I&O's ordered. Unfortunately, the patient's oral intake was not appropriate daily documented. However, she does self reports adequate p.o. intake. Given the patient's low BMI, chronic hypokalemia without identified cause, and self-admitted food restriction and colonic washes, there is concern for an eating disorder. Mental health services were consulted; were cleared from a psychiatric perspective (no indications for IVC placement), No medication recommendations at this time. Per their perspective, the patient does have a probable eating disorder, however, the patient requires additional mental health evaluations to make formalized diagnosis. Follow-up chemistry this afternoon demonstrated persistent metabolic acidosis, although improved with a bicarb of 20, and persistent hypokalemia with a potassium of 2.7. An additional 40 of oral potassium and 40 of IV potassium was ordered. Upon meeting the patient to relay the lab results and plan of care for the evening, the patient stated, "you can keep your potassium, I'm going home." The patient then proceeded to leave AGAINST MEDICAL ADVICE.
[2019-04-18] MEDS ORDERED: POTASSIUM CHLORIDE 10 MEQ CAPSULE.ER PO SCH (10:00)
== END 2019-04-17 16:20 | disposition left against medical advice (07) ==
LOC: ER 19:35 → EH 04-17 01:30
PROVIDERS: ADMIT Internal Medicine; ATTEND Internal Medicine
DX: E87.6 Hypokalemia (principal); E87.2 Acidosis; R00.2 Palpitations; F50.82 Avoidant/restrictive food intake disorder; N28.9 Disorder of kidney and ureter, unspecified; Z82.49 Family history of ischemic heart disease and other diseases of the circulatory system; Z87.442 Personal history of urinary calculi; Z79.899 Other long term (current) drug therapy; Z88.6 Allergy status to analgesic agent; Z88.1 Allergy status to other antibiotic agents; Z98.890 Other specified postprocedural states
CPT/HCPCS: 93005; 99285; 96361; 96375; 96365; 96366; 36415 ×2; 83735; 84100; 85025; 87070; 80048; 81001; 84484; 80307; 82803; 93010; G0378; J3480 ×3; J2405; J7030; J3490

== ENCOUNTER → 2019-04-16 | Outpatient (CLI) | payer BC ==
[2019-04-16 11:04] LABS: ANION GAP 15 (5-19); BLOOD UREA NITROGEN 14 mg/dL (7-20); CALCIUM 10.2 mg/dL (8.4-10.2); CARBON DIOXIDE 22 mmol/L (22-30); CHLORIDE 101 mmol/L (98-107); GLUCOSE 74 mg/dL (75-110)
[2019-04-16 11:49] LABS: POTASSIUM 2.5 mmol/L (3.6-5.0)
== END ==
LOC: OD 09:42
PROVIDERS: ATTEND Internal Medicine Nephrology
DX: E87.6 Hypokalemia (principal)
CPT/HCPCS: 36415; 80048

== ENCOUNTER → 2019-04-19 | Outpatient (CLI) | payer BC ==
[2019-04-19 11:25] LABS: ANION GAP 9 (5-19); BLOOD UREA NITROGEN 7 mg/dL (7-20); CALCIUM 8.8 mg/dL (8.4-10.2); CARBON DIOXIDE 23 mmol/L (22-30); CHLORIDE 105 mmol/L (98-107); GLUCOSE 75 mg/dL (75-110); POTASSIUM 3.1 mmol/L (3.6-5.0)
[2019-04-22 11:13] LABS: ANION GAP 9 (5-19); BLOOD UREA NITROGEN 8 mg/dL (7-20); CALCIUM 9.5 mg/dL (8.4-10.2); CARBON DIOXIDE 22 mmol/L (22-30); CHLORIDE 107 mmol/L (98-107); GLUCOSE 78 mg/dL (75-110); POTASSIUM 3.5 mmol/L (3.6-5.0)
== END ==
LOC: OD 10:06
PROVIDERS: ATTEND Internal Medicine Nephrology
DX: E87.6 Hypokalemia (principal)
CPT/HCPCS: 36415; 80048

== ENCOUNTER → 2019-04-29 | Outpatient (CLI) | payer BC ==
[2019-04-29 11:04] LABS: ANION GAP 11 (5-19); BLOOD UREA NITROGEN 7 mg/dL (7-20); CALCIUM 9.2 mg/dL (8.4-10.2); CARBON DIOXIDE 21 mmol/L (22-30); CHLORIDE 106 mmol/L (98-107); GLUCOSE 68 mg/dL (75-110); POTASSIUM 3.3 mmol/L (3.6-5.0)
== END ==
LOC: OD 09:56
PROVIDERS: ATTEND Internal Medicine Nephrology
DX: E87.6 Hypokalemia (principal)
CPT/HCPCS: 36415; 80048

== ENCOUNTER → 2019-05-16 | Outpatient (CLI) | payer BC ==
[2019-05-16 11:03] LABS: ANION GAP 12 (5-19); BLOOD UREA NITROGEN 13 mg/dL (7-20); CALCIUM 9.4 mg/dL (8.4-10.2); CARBON DIOXIDE 21 mmol/L (22-30); CHLORIDE 104 mmol/L (98-107); GLUCOSE 47 mg/dL (75-110)
[2019-05-16 11:05] LABS: POTASSIUM 3.2 mmol/L (3.6-5.0)
== END ==
LOC: OD 09:30
PROVIDERS: ATTEND Internal Medicine Nephrology
DX: E87.6 Hypokalemia (principal)
CPT/HCPCS: 36415; 80048

== ENCOUNTER → 2019-07-08 | Outpatient (CLI) | payer BC ==
[2019-07-08 13:01] LABS: ANION GAP 7 (5-19); BLOOD UREA NITROGEN 7 mg/dL (7-20); CALCIUM 9.1 mg/dL (8.4-10.2); CARBON DIOXIDE 26 mmol/L (22-30); CHLORIDE 102 mmol/L (98-107); GLUCOSE 82 mg/dL (75-110); POTASSIUM 3.3 mmol/L (3.6-5.0); URIC ACID 2.2 mg/dL (2.5-7.5)
[2019-07-08 13:04] LABS: APPEARANCE,URINE CLEAR; BILIRUBIN,URINE NEGATIVE (NEGATIVE); COLOR,URINE YELLOW; GLUCOSE, URINE NEGATIVE (NEGATIVE); KETONES,URINE NEGATIVE (NEGATIVE); LEUKOCYTE ESTERASE,URINE NEGATIVE (NEGATIVE); NITRITE,URINE NEGATIVE (NEGATIVE); PROTEIN,URINE NEGATIVE (NEGATIVE); URINE SPECIFIC GRAVITY 1.016; UROBILINOGEN,URINE NEGATIVE mg/dL (<2.0)
[2019-07-12 11:31] LABS: ALDOSTERONE RENIN RATIO 2 2.1 (0.0-30.0); RENIN ACTIVITY 14.541 ng/mL/hr (0.167-5.38)
== END ==
LOC: OD 12:09
PROVIDERS: ATTEND Internal Medicine Nephrology
DX: E87.1 Hypo-osmolality and hyponatremia (principal); E87.6 Hypokalemia; N20.0 Calculus of kidney; E03.9 Hypothyroidism, unspecified
CPT/HCPCS: 36415; 80048; 81001; 82088; 83735; 83970; 84244; 84550

== ENCOUNTER → 2020-03-03 | Outpatient (CLI) | payer BC ==
--- NOTE | 2020-03-03 16:35 | WOMENS IMAGING REPORT ---
EXAM DESCRIPTION: 3D SCREENING MAMMO BILAT IMAGES COMPLETED DATE/TIME: 03/03/2020 3:47 pm REASON FOR STUDY: Z12.31 ENCOUNTER FOR SCREENING MAMMOGRAM FOR MALIGNANT NEOPLASM OF BREAST Z12.31 ENCNTR SCREEN MAMMOGRAM FOR MALIGNANT NEOPLASM OF PHILIPP COMPARISON: 06/08/2016 and 05/25/2015. EXAM PARAMETERS: Views: Standard craniocaudal and mediolateral oblique views of each breast recorded using digital acquisition and breast tomosynthesis. Read with the assistance of CAD. .[facility] - R2 Pump Erector Version 9.2 LIMITATIONS: None. FINDINGS: No suspicious masses, suspicious calcifications or architectural distortion. No areas of c oncern. IMPRESSION: NEGATIVE MAMMOGRAM. BIRADS 1. BREAST DENSITY: c. The breasts are heterogeneously dense, which may obscure small masses. BIRAD: ASSESSMENT: 1 NEGATIVE RECOMMENDATION: ROUTINE SCREENING COMMENT: The patient has been notified of the results by letter per MQSA requirements. Additional no tification policies are in place for contacting patient with suspicious or incomplete findings. Quality ID #[id number]: The [employer] recommends an annual screening mammogram for women aged 40 years or over. This facility utilizes a reminder system to ensure that all patients receive reminder letters, and/or direct phone calls for appointments. This includes reminders for routine scr eening mammograms, diagnostic mammograms, or other Breast Imaging Interventions when appropriate. Th is patient will be placed in the appropriate reminder system. TECHNICAL DOCUMENTATION: FINDING NUMBER: (1) ASSESSMENT: (1) JOB ID: [id number] 2010 [employer]- All Rights Reserved Reading location - IP/workstation name: [email or web address]
== END ==
LOC: WI 15:03
PROVIDERS: ATTEND Obstetrics & Gynecology
DX: Z12.31 Encounter for screening mammogram for malignant neoplasm of breast (principal)
CPT/HCPCS: 77063; 77067

== ENCOUNTER → 2020-04-06 | Outpatient (CLI) | payer BC | LOC: OD 11:09 | PROVIDERS: ATTEND Internal Medicine Nephrology | DX: E87.6 Hypokalemia (principal) | CPT/HCPCS: 36415; 84132 ==

== ENCOUNTER → 2020-06-19 | Outpatient (CLI) | payer BC ==
[2020-06-19 11:38] LABS: APPEARANCE,URINE SLIGHTLY-CLOUDY; BILIRUBIN,URINE NEGATIVE (NEGATIVE); COLOR,URINE YELLOW; GLUCOSE, URINE NEGATIVE (NEGATIVE); KETONES,URINE TRACE mg/dL (NEGATIVE); LEUKOCYTE ESTERASE,URINE TRACE (NEGATIVE); NITRITE,URINE NEGATIVE (NEGATIVE); PROTEIN,URINE 30 mg/dL (NEGATIVE); URINE SPECIFIC GRAVITY 1.017; UROBILINOGEN,URINE NEGATIVE mg/dL (<2.0)
[2020-06-19 11:52] LABS: ANION GAP 12 (5-19); BLOOD UREA NITROGEN 10 mg/dL (7-20); CALCIUM 9.8 mg/dL (8.4-10.2); CARBON DIOXIDE 21 mmol/L (22-30); CHLORIDE 103 mmol/L (98-107); GLUCOSE 81 mg/dL (75-110)
== END ==
LOC: OD 10:27
PROVIDERS: ATTEND Internal Medicine Nephrology
DX: N20.0 Calculus of kidney (principal); R80.9 Proteinuria, unspecified; R31.9 Hematuria, unspecified
CPT/HCPCS: 36415; 80048; 81001; 87086